=== PATIENT | female | born 1970 | race Native Hawaiian/Other Pacific Islander ===

== ENCOUNTER 2019-02-06 15:28 | Outpatient (CLI) | payer OTHER ==
[2019-02-06 16:12] LABS: PLATELET COUNT 363 K/uL (152-353)
[2019-02-06 16:19] LABS: POTASSIUM 3.2 mmol/L (3.6-5.2)
== END 2019-02-06 20:49 | disposition home or self-care (01) ==
LOC: LABW 15:28
PROVIDERS: Internal Medicine
DX: R11.2 Nausea with vomiting, unspecified (principal)
CPT/HCPCS: 36415; 80053; 85027

== ENCOUNTER 2019-02-15 16:20 | Outpatient (CLI) | payer OTHER | END 2019-02-15 19:16 | disposition home or self-care (01) | LOC: RAD 16:20 | DX: T14.8XXA Other injury of unspecified body region, initial encounter (principal); S46.811D Strain of other muscles, fascia and tendons at shoulder and upper arm level, right arm, subsequent encounter; M25.511 Pain in right shoulder; G89.29 Other chronic pain ==

== ENCOUNTER 2019-04-13 08:33 | Outpatient (CLI) | payer OTHER ==
[2019-04-13 08:44] LABS: PLATELET COUNT 312 K/uL (152-353)
[2019-04-13 09:04] LABS: POTASSIUM 3.3 mmol/L (3.6-5.2)
== END 2019-04-13 23:43 | disposition home or self-care (01) ==
LOC: LABW 08:33
PROVIDERS: Internal Medicine
DX: I10 Essential (primary) hypertension (principal); F98.8 Other specified behavioral and emotional disorders with onset usually occurring in childhood and adolescence; R51 Headache; R53.83 Other fatigue; Z79.899 Other long term (current) drug therapy
CPT/HCPCS: 80053; 80061; 84443; 85027

== ENCOUNTER 2019-05-04 08:10 | Outpatient (CLI) | payer OTHER | END 2019-05-04 20:14 | disposition home or self-care (01) | LOC: MAMMO 08:10 | DX: Z12.31 Encounter for screening mammogram for malignant neoplasm of breast (principal) ==

== ENCOUNTER 2019-05-26 07:46 | Outpatient (CLI) | payer OTHER | END 2019-05-26 20:58 | disposition home or self-care (01) | LOC: MRI 07:46 | DX: M25.511 Pain in right shoulder (principal) ==

== ENCOUNTER 2019-09-07 11:19 | Outpatient (CLI) | payer OTHER | END 2019-09-07 19:47 | disposition home or self-care (01) | LOC: RAD 11:19 | DX: R05 Cough (principal) ==

== ENCOUNTER 2019-10-31 11:42 | Outpatient (CLI) | payer OTHER | END 2019-10-31 20:13 | disposition home or self-care (01) | LOC: RAD 11:42 | DX: R05 Cough (principal) ==

== ENCOUNTER 2019-11-30 08:01 | Outpatient (CLI) | payer OTHER | END 2019-11-30 20:53 | disposition home or self-care (01) | LOC: MRI 08:01 | DX: M25.511 Pain in right shoulder (principal) ==

== ENCOUNTER 2020-03-01 10:42 | Outpatient (CLI) | payer OTHER | END 2020-03-01 19:22 | disposition home or self-care (01) | LOC: MRI 10:42 | DX: M54.12 Radiculopathy, cervical region (principal) ==

== ENCOUNTER 2020-03-27 08:47 | Outpatient (CLI) | payer OTHER | END 2020-03-27 19:44 | disposition home or self-care (01) | LOC: US 08:47 | DX: E04.1 Nontoxic single thyroid nodule (principal) ==

== ENCOUNTER 2020-08-28 12:09 | Outpatient (CLI) | payer OTHER | END 2020-08-28 23:52 | disposition home or self-care (01) | LOC: RAD 12:09 | PROVIDERS: ATTEND Internal Medicine | DX: R05 Cough (principal) ==

== ENCOUNTER 2021-01-01 08:11 | Outpatient (CLI) | payer OTHER | END 2021-01-01 22:36 | disposition home or self-care (01) | LOC: INF 08:11 | PROVIDERS: ATTEND Internal Medicine | DX: Z23 Encounter for immunization (principal) | CPT/HCPCS: 96372 ==

== ENCOUNTER 2021-01-23 08:07 | Outpatient (CLI) | payer OTHER | END 2021-01-23 19:32 | disposition home or self-care (01) | LOC: INF 08:07 | PROVIDERS: ATTEND Internal Medicine | DX: Z23 Encounter for immunization (principal) | CPT/HCPCS: 96372 ==

== ENCOUNTER 2021-08-25 06:07 | Emergency (ER) | payer BC ==
[~2021-08-25] VITALS: Ht 157.5 cm; Wt 115.2 kg
[2021-08-25 06:15] VITALS: TEMP 99.1
[2021-08-25 06:39] LABS: PLATELET COUNT 217 K/uL (152-353)
[2021-08-25 06:46] LABS: POTASSIUM 2.9 mmol/L (3.6-5.2)
[2021-08-25 07:00] LABS: PARTIAL THROMBOPLASTIN TIME 23.9 SECONDS (24.5-33.6)
[2021-08-25 08:00] VITALS: BP 158/74
== END 2021-08-25 08:00 | disposition home or self-care (01) ==
LOC: ED 06:07
PROVIDERS: Hospitalist
DX: J45.909 Unspecified asthma, uncomplicated (principal); J40 Bronchitis, not specified as acute or chronic; E87.6 Hypokalemia; Z20.822 Contact with and (suspected) exposure to COVID-19
CPT/HCPCS: 36415; 80053; 82550; 83880; 84484; 85027; 85610; 85730; 87635; 87651; 93005; 96365; 96375; 99284; J0696; J1940; J2930; U0003